=== PATIENT | male | born 2000 | race African-American/Black ===

== ENCOUNTER 2020-04-27 17:40 | Emergency (ER) | payer SELFPAY ==
[~2020-04-27] VITALS: Ht 185.5 cm; Wt 77.1 kg
[2020-04-27 17:44] VITALS: BP 125/74
[2020-04-27] MEDS ORDERED: IBUP-1780 PO (18:05)
[2020-04-27] MEDS ORDERED: GUAI-365 PO (18:05)
--- NOTE | 2020-04-27 18:06 | ED Respiratory ---
General Chief Complaint: Chest Pain Stated Complaint: CHEST PAIN,SOA,HEADACHE Nursing Triage Note: Patient reports shortness of breath, nasal congestion and headache for 2 weeks, and chest pain for 3 days. He denies any cough or fever. He denies any recent sick contacts. He reports he normally uses an inhaler, but left his inhaler at home when he flew to [place] for school two weeks ago. Source: patient Exam Limitations: no limitations History of Present Illness Date Seen by Provider: Apr 27, 2020 Time Seen by Provider: 17:55 Initial Comments 19-year-old male presents with 2 weeks of intermittent nasal congestion, and occasional shortness of air when he is outdoors in the cold weather. 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 He gets occasional headaches during the day which are located on the front of his head. Denies history of asthma, fever chills, nausea vomiting. Appetite is good and activities are unlimited. No significant past medical history, denies history of asthma, although he has used an inhaler in the past. Allergies and Home Medications Allergies Coded Allergies: No Known Drug Allergies (Unverified , 04/27/20) Patient Home Medication List Home Medication List Reviewed: Yes Review of Systems Review of Systems Constitutional: No chills, No diaphoresis, No dizziness, No fever, No malaise, No weakness EENTM: see HPI, nose congestion; No hoarseness, No mouth pain, No mouth swelling, No epistaxis, No nose pain, No throat pain, No throat swelling Respiratory: No cough, No dyspnea on exertion Cardiovascular: chest pain (intermittent sharp pains iin chest. none currently); No edema, No palpitations, No syncope Gastrointestinal: No abdominal pain, No loss of appetite, No nausea, No vom iting Musculoskeletal: No back pain, No joint pain Skin: No change in color, No rash Psychiatric/Neurological: Headache (intermittent- frontal); Denies Numbness, Denies Paresthesia, Denies Seizure, Denies Weakness Past Qxazurq-Nizzvr-Xvernt Hx Past Med/Social Hx: Reviewed Nursing Past Med/Soc Hx Patient Social History Recent Infectious Disease Expo: No Physical Exam Vital Signs - First Documented 04/27/20 17:44 Temp 36.8 Pulse 64 Resp 22 B/P (MAP) 125/74 (91) Pulse Ox 98 O2 Delivery Room Air Capillary Refill : Less Than 3 Seconds Height: '" Weight: lbs. oz. kg; 22.00 BMI Method: General Appearance: WD/WN, no apparent distress Eyes: Bilateral Eye Normal Inspection, Bilateral Eye PERRL, Bilateral Eye EOMI HEENT: PERRL/EOMI, normal ENT inspection, TMs normal, pharynx normal Neck: non-tender, supple; No lymphadenopathy (R), No lymphadenopathy (L) Respiratory: chest non-tender, lungs clear, normal breath sounds, no respiratory distress, no accessory muscle use Cardiovascular: regular rate, rhythm, no edema, no JVD Gastrointestinal: non tender, soft Neurologic/Psychiatric: no motor/sensory deficits, alert, normal mood/affect, oriented x 3 Skin: normal color, warm/dry Progress/Results/Core Measures Suspected Sepsis Recent Fever Within 48 Hours: No Infection Criteria Present: None New/Unexplained Altered Menta: No Sepsis Screen: No Definite Risk SIRS Temperature: Pulse: 64 Respiratory Rate: 22 Blood Pressure 125 /74 Mean: 91 Results/Orders My Orders Orders - SATYA BOO DO Chest 1 View Ap/Pa Only (04/27/20 18:00) Vital Signs/I&O 04/27/20 17:44 Temp 36.8 Pulse 64 Resp 22 B/P (MAP) 125/74 (91) Pulse Ox 98 O2 Delivery Room Air Capillary Refill : Less Than 3 Seconds Blood Pressure Mean: 91 Departure Impression Primary Impression: URI (upper respiratory infection) Qualified Codes: J06.9 - Acute upper respiratory infection, unspecified Disposition: 01 HOME, SELF-CARE Condition: Stable Departure-Patient Inst. Decision time for Depature: 18:04 Referrals: [facility] NO,LOCAL PHYSICIAN (PCP) Primary Care Physician Patient Instructions: Headache, Adult (DC), Upper Respiratory Infection ED Add. Discharge Instructions: Follow up at [facility] in 1 week if not improving, sooner if worse. All discharge instructions reviewed with patient and/or family. Voiced understanding. Scripts Guaifenesin/Pseudoephedrne HCl (Mucinex D ER 1,200-120 mg Tab) 1 Each Tab.er.12h 1 EACH PO q 12hr for sinus headache, #10 TAB Prov: MICHELLSTSATYA CAR DO 04/27/20 Ibuprofen (Ibuprofen) 800 Mg Tablet 800 MG PO Q8H PRN for PAIN, #30 TAB 0 Refills Prov: SATYA BOO DO 04/27/20 SATYA BOO DO Apr 27, 2020 18:06
--- NOTE | 2020-04-27 18:22 | Diagnostic Imaging Report ---
Clinical indication: Patient with shortness of breath, nasal congestion and headache x2 weeks. Patient has chest pain x3 days and history of asthma. Exam: Portable chest x-ray upright view. Comparisons: None. Findings: Lungs/pleura: Lungs are clear. There is no pneumothorax. There is no pleural effusion. Mediastinum: Unremarkable. Pulmonary vasculature: Unremarkable. Heart: Unremarkable. Bones/extrathoracic soft tissue: Unremarkable. Impression: There is no radiographic evidence of acute cardiopulmonary process. Dictated by: Dictated on workstation # [id number]
== END 2020-04-27 18:30 | disposition home or self-care (01) ==
LOC: ER FS 17:42
DX: J06.9 Acute upper respiratory infection, unspecified (principal)
CPT/HCPCS: 71045

== ENCOUNTER 2020-06-07 09:20 | Emergency (ER) | payer SELFPAY ==
[~2020-06-07] VITALS: Ht 185 cm; Wt 78.0 kg
[~2020-06-07 09:20] MED LIST: GUAI-365 PO; IBUP-1780 PO
[2020-06-07 09:25] VITALS: BP 115/63
[2020-06-07] MEDS ORDERED: FAMOTIDINE 20 MG (PEPCID) TABLET PO STA (09:29)
[2020-06-07] MEDS ORDERED: LIDOCAINE 2% VISCOUS 15 ML UDC PO ONE (09:30)
[2020-06-07] MEDS ORDERED: ANTACID SUSP 30 ML UDC (MYLANTA) PO ONE (09:30)
--- NOTE | 2020-06-07 09:34 | ED GI ---
General Chief Complaint: Abdominal/GI Problems Stated Complaint: INDIGESTION Source of Information: Patient Exam Limitations: No Limitations History of Present Illness Date Seen by Provider: Jun 07, 2020 Time Seen by Provider: 09:22 Initial Comments Patient presents ER by private conveyance from home with chief complaint that for the past 3 days has had intermittent feeling of a bubble in the center of his chest mid line, substernal like he needs to belch but he says he cannot get anything to come out. It is a dull pressure and no pain. Is not having any shortness of air fever chills cough, nausea, vomiting, diarrhea, constipation. He has been able to eat and drink normally. He has never had this before. He did not try any medicines, antacids etc. for it. No history of abdominal surgeries or medical problems. He plays football and denies any recent trauma prior to the symptoms starting. Allergies and Home Medications Allergies Coded Allergies: No Known Drug Allergies (Unverified , 04/27/20) Home Medications Famotidine 20 Mg Tablet, 20 MG PO BID Prescribed by: GRAHAM BEST on 06/07/20 1002 Guaifenesin/Pseudoephedrne HCl 1 Each Tab.er.12h, 1 EACH PO q 12hr Prescribed by: SATYA BOO on 04/27/20 180 Ibuprofen 800 Mg Tablet, 800 MG PO Q8H PRN for PAIN Prescribed by: SATYA BOO on 04/27/20 180 Patient Home Medication List Home Medication List Reviewed: Yes Review of Systems Review of Systems Constitutional: No chills, No diaphoresis EENTM: No Blurred Vision, No Double Vision Respiratory: Denies Cough, Denies Shortness of Air Cardiovascular: See HPI; Denies Chest Pain, Denies Lightheadedness Gastrointestinal: See HPI; Denies Abdominal Pain, Denies Constipated, Denies Diarrhea, Denies Nausea Genitourinary: Denies Burning, Denies Discharge Musculoskeletal: No back pain, No joint pain All Other Systems Reviewed Negative Unless Noted: Yes Past Kynipru-Kzxela-Mrsivn Hx Patient Social History Alcohol Use: Denies Use Smoking Status: Never a Smoker 2nd Hand Smoke Exposure: No Recent Hopitalizations: No Seasonal Allergies Seasonal Allergies: No Past Medical History Surgeries: No Respiratory: Yes Asthma Cardiac: No Neurological: No Genitourinary: No Gastrointestinal: No Musculoskeletal: No Endocrine: No HEENT: No Cancer: No Psychosocial: No Integumentary: No Physical Exam Vital Signs Vital Signs - First Documented 06/07/20 09:25 Temp 36.0 Pulse 79 Resp 18 B/P (MAP) 115/63 (80) Pulse Ox 96 O2 Delivery Room Air Capillary Refill : Height/Weight/BMI Height: '" Weight: lbs. oz. kg; 22.00 BMI Method: General Appearance: WD/WN, no apparent distress HEENT: PERRL/EOMI, pharynx normal Neck: full range of motion, normal inspection Respiratory: lungs clear, normal breath sounds, no respiratory distress, no accessory muscle use Cardiovascular: normal peripheral pulses, regular rate, rhythm Gastrointestinal: normal bowel sounds, non tender, soft, no organomegaly Back: normal inspection, no vertebral tenderness Neurologic/Psychiatric: alert, normal mood/affect, oriented x 3 Skin: normal color, warm/dry Progress/Results/Core Measures Results/Orders My Orders Orders - GRAHAM BEST Chest Pa/Lat (2 View) (06/07/20 09:29) Lidocaine 2% Viscous 15 Ml (Xylocaine Vi (06/07/20 09:30) Famotidine Tablet (Pepcid Tablet) (06/07/20 09:29) Antacid Suspension (Mylanta Suspension (06/07/20 09:30) Ekg Tracing (06/07/20 09:34) Medications Given in ED Current Medications Medications Dose Ordered Sig/Uzma Route Start Time Stop Time Status Last Admin Dose Admin Al Hydrox/Mg Hydrox/Simethicone 30 ml ONCE ONCE PO 06/07/20 09:30 06/07/20 09:31 DC 06/07/20 09:36 30 ML Lidocaine HCl 15 ml ONCE ONCE PO 06/07/20 09:30 06/07/20 09:31 DC 06/07/20 09:36 15 ML Vital Signs/I&O 06/07/20 09:25 Temp 36.0 Pulse 79 Resp 18 B/P (MAP) 115/63 (80) Pulse Ox 96 O2 Delivery Room Air Progress Progress Note #1: Time: 09:32 Progress Note Well-appearing athletic individual with intermittent pressure discomfort gas bubble sensation in the distribution of his mediastinum. This could be related to gas, esophagitis, gastroenteritis however we will get a 2 view chest x-ray to entertain the possibility of a spontaneous pneumothorax. He does not give any history that he has been having a lot of vomiting to suggest a Borhaaves type syndrome. A GI cocktail has been ordered in addition to Pepcid. Progress Note #2: Time: 09:57 Progress Note The patient went from symptomatic to asymptomatic after the GI cocktail. No evidence of a spontaneous pneumothorax on chest x-ray. We discussed doing some Pepcid for couple weeks as well as antacids for symptoms and will give him follow-up with general surgery if his symptoms persist for more than 2 to 4 weeks to consider endoscopy or further management. Initial ECG Impression Date: Jun 07, 2020 Initial ECG Impression Time: 09:36 Initial ECG Rate: 65 Initial ECG Rhythm: Normal Sinus Initial ECG Intervals: Normal Initial ECG Impression: Normal, Nonspecific Changes Initial ECG Comparisson: No Previous ECG Available Comment Normal sinus rhythm with baires ST elevation 1/2-1 box and several disparate leads including inferior leads, lateral leads, anterior leads likely related to age versus pericarditis. Diagnostic Imaging Diagonstic Imaging: Xray Plain Films/CT/US/NM/MRI: chest (2v) Comments No acute cardiopulmonary process. No wide mediastinum or cardiomegaly. No evidence of pneumothorax. No acute osseous abnormalities. Reviewed: Reviewed by Me Departure Impression Primary Impression: GERD (gastroesophageal reflux disease) Qualified Codes: K21.00 - Gastro-esophageal reflux disease with esophagitis, without bleeding Disposition: 01 HOME, SELF-CARE Condition: Stable Departure-Patient Inst. Decision time for Depature: 09:59 Referrals: LÓPEZ DEJESUS DO NO,LOCAL PHYSICIAN (PCP) Primary Care Physician Patient Instructions: Acid Reflux and Gastroesophageal Reflux Disease in Adults Add. Discharge Instructions: You appear to be having some reflux in your esophagus/food tube. For the next couple weeks let us use Pepcid 20 mg twice a day to reduce your stomach acid and see if that does not improve your symptoms. If you get repeat symptoms of gas, pressure or discomfort then you may try Tums, Rolaids, Maalox, Mylanta etc. If this does not help you might try a medicine with simethicone in it such as Gas-X to see if this relieves some of the discomfort. If your symptoms persist for more than 2 to 4 weeks then I would encourage you to follow-up with either your primary care doctor or you may follow-up with Dr. Dejesus, general surgery in [place] for further management and if necessary he can discuss potentially doing an EGD. EGD entails putting a camera down your stomach using a fiberoptic scope looking for ulcers or other sources of your persistent discomfort. Return to the nearest ER if you are having severe intractable pain nausea etc. All discharge instructions reviewed with patient and/or family. Voiced understanding. Scripts Famotidine (Pepcid) 20 Mg Tablet 20 MG PO BID for 14 Days, #30 TAB 0 Refills Prov: GRAHAM BEST 06/07/20 Work/School Note: School/Childcare Release Date Seen in the Emergency Department: Jun 07, 2020 Time Dismissed from Emergency Department: 10:02 Return to School: Jun 07, 2020 Restrictions: No Restrictions Copy Copies To 1: LÓPEZ DEJESUS TITUS J Jun 07, 2020 09:34
[2020-06-07] MEDS ORDERED: FAMO-119 PO (10:02)
--- NOTE | 2020-06-07 10:05 | Diagnostic Imaging Report ---
INDICATION: Chest pressure. EXAMINATION: PA and lateral chest. FINDINGS: The heart size and pulmonary vascularity are normal. The lungs are clear. There are no effusions or pneumothoraces. IMPRESSION: Negative chest. Dictated by: Dictated on workstation # [id number]
== END 2020-06-07 10:04 | disposition home or self-care (01) ==
LOC: EDUNIT# 09:20 → ER FS 09:22
DX: K21.00 Gastro-esophageal reflux disease with esophagitis, without bleeding (principal); J45.909 Unspecified asthma, uncomplicated
CPT/HCPCS: 71046; 93005

== ENCOUNTER 2020-06-16 13:07 | Emergency (ER) | payer SELFPAY ==
[~2020-06-16] VITALS: Ht 185.4 cm; Wt 80.3 kg
[~2020-06-16 13:07] MED LIST changes: +FAMO-119 PO
--- NOTE | 2020-06-16 13:57 | ED General ---
General Chief Complaint: General Problems/Pain Stated Complaint: CHEST TIGHTNESS Nursing Triage Note: Patient presents to ED reporting chest tightness with activity. Pt reports he has had SOA in past and rec'd an inhaler from . Pt had COVID in September. Nursing Sepsis Screen: No Definite Risk Source of Information: Patient, Old Records History of Present Illness Date Seen by Provider: Jun 16, 2020 Time Seen by Provider: 13:10 Initial Comments 19-year-old male presenting with recurrent chest tightness and shortness of breath especially with exertion. He states that he is originally from [place] and is appear for [employer]. He is not used to being in the cold and was sick when it was in the negative degree range in May. He has had intermittent shortness of breath and chest tightness over the last 6 weeks. He was seen at the end of May and was having a sensation of a bubble in his chest. He states that since taking the famotidine that he was prescribed he has had some improvement in that. He continues to get that when he lays down and has a dry sensation in the back of his throat at times. He denies any nausea or vomiting. He has had no fever or chills. He denies any wheezing. He states that when he gets short of breath with activity if he sits and rests for a minute then it improves. He reports that his burping and reflux symptoms have improved since taking the famotidine. He has a history of a heart murmur and some shortness of breath that was treated with an inhaler about 2 years ago in [place]. He states that he never saw a lockstitch tunnel elastic operator for lung specialist. He was diagnosed with Covid in September 2019. Allergies and Home Medications Allergies Coded Allergies: No Known Drug Allergies (Unverified , 04/27/20) Home Medications Colchicine 0.6 Mg Capsule, 0.6 MG PO BID Prescribed by: ADONIS ROMERO on 06/16/20 1459 Famotidine 20 Mg Tablet, 20 MG PO BID Prescribed by: GRAHAM BEST on 06/07/20 1002 Ibuprofen 800 Mg Tablet, 800 MG PO Q8H PRN for PAIN 800 mg by mouth 3 times a day for 2 weeks, then 800 mg 2 times a day for 1 week, then 400 mg (1/2 tablet) 2 times a day for 6 days. Prescribed by: ADONIS ROMERO on 4/7/21 1456 Omeprazole 20 Mg Capsule.dr, 20 MG PO BID Prescribed by: ADONIS ROMERO on 06/16/206 Patient Home Medication List Home Medication List Reviewed: Yes Review of Systems Review of Systems Constitutional: No chills, No dizziness, No fever, No malaise EENTM: other (dry sensation in back of throat); No epistaxis, No nose congestion Respiratory: dyspnea on exertion (improves with rest) Cardiovascular: chest pain (tightness with exertion, improves with rest. Bubble sensation in chest with laying down that has improved with taking the famotidine) Gastrointestinal: No abdominal pain, No nausea, No vomiting Genitourinary: no symptoms reported Musculoskeletal: no symptoms reported Skin: no symptoms reported Psychiatric/Neurological: No Symptoms Reported Hematologic/Lymphatic: No Symptoms Reported Past Xfrnouv-Nefmui-Dsxesc Hx Past Med/Social Hx: Reviewed Nursing Past Med/Soc Hx Patient Social History Alcohol Use: Denies Use Smoking Status: Never a Smoker 2nd Hand Smoke Exposure: No Recent Infectious Disease Expo: No Recent Hopitalizations: No Seasonal Allergies Seasonal Allergies: No Past Medical History Surgeries: No Respiratory: Yes Asthma Cardiac: No Neurological: No Genitourinary: No Gastrointestinal: No Musculoskeletal: No Endocrine: No HEENT: No Cancer: No Psychosocial: No Integumentary: No Blood Disorders: No Physical Exam Vital Signs Vital Signs - First Documented 06/16/20 13:10 Temp 36.8 Pulse 65 Resp 12 B/P (MAP) 130/62 (84) Pulse Ox 98 O2 Delivery Room Air Capillary Refill : Less Than 3 Seconds Height, Weight, BMI Height: '" Weight: lbs. oz. kg; 23.00 BMI Method: General Appearance: No Apparent Distress, WD/WN HEENT: PERRL/EOMI, Normal ENT Inspection, Pharynx Normal, Moist Mucous Membranes Neck: Full Range of Motion, Normal Inspection, Non Tender, Supple Respiratory: Chest Non Tender, Lungs Clear, Normal Breath Sounds, No Accessory Muscle Use, No Respiratory Distress Cardiovascular: Regular Rate, Rhythm, Normal Peripheral Pulses Gastrointestinal: Normal Bowel Sounds, No Pulsatile Mass, Non Tender, Soft Rectal: Deferred Extremity: Normal Capillary Refill, No Pedal Edema Neurologic/Psychiatric: Alert, Oriented x3 Skin: Normal Color, Warm/Dry Progress/Results/Core Measures Suspected Sepsis Recent Fever Within 48 Hours: No Infection Criteria Present: None New/Unexplained Altered Menta: No Sepsis Screen: No Definite Risk SIRS Temperature: Pulse: 65 Respiratory Rate: 12 Laboratory Tests 06/16/20 13:54: White Blood Count 5.4 Blood Pressure 130 /62 Mean: 84 Laboratory Tests 06/16/20 13:54: Creatinine 1.06, Platelet Count 248, Total Bilirubin 0.5 Results/Orders Lab Results Laboratory Tests Test 06/16/20 13:54 Range/Units White Blood Count 5.4 4.3-11.0 10^3/uL Red Blood Count 4.94 4.35-5.85 10^6/uL Hemoglobin 13.7 13.3-17.7 G/DL Hematocrit 41 40-54 % Mean Corpuscular Volume 83 80-99 FL Mean Corpuscular Hemoglobin 28 25-34 PG Mean Corpuscular Hemoglobin Concent 33 32-36 G/DL Red Cell Distribution Width 13.6 10.0-14.5 % Platelet Count 248 130-400 10^3/uL Mean Platelet Volume 9.6 7.4-10.4 FL Immature Granulocyte % (Auto) 0 % Neutrophils (%) (Auto) 56 42-75 % Lymphocytes (%) (Auto) 37 12-44 % Monocytes (%) (Auto) 6 0-12 % Eosinophils (%) (Auto) 0 0-10 % Basophils (%) (Auto) 1 0-10 % Neutrophils # (Auto) 3.0 1.8-7.8 X 10^3 Lymphocytes # (Auto) 2.0 1.0-4.0 X 10^3 Monocytes # (Auto) 0.3 0.0-1.0 X 10^3 Eosinophils # (Auto) 0.0 0.0-0.3 10^3/uL Basophils # (Auto) 0.0 0.0-0.1 10^3/uL Immature Granulocyte # (Auto) 0.0 0.0-0.1 10^3/uL Sodium Level 138 135-145 MMOL/L Potassium Level 4.3 3.6-5.0 MMOL/L Chloride Level 101 98-107 MMOL/L Carbon Dioxide Level 31 21-32 MMOL/L Anion Gap 6 5-14 MMOL/L Blood Urea Nitrogen 9 7-18 MG/DL Creatinine 1.06 0.60-1.30 MG/DL Estimat Glomerular Filtration Rate > 60 BUN/Creatinine Ratio 8 Glucose Level 109 H 70-105 MG/DL Calcium Level 9.7 8.5-10.1 MG/DL Corrected Calcium 9.4 8.5-10.1 MG/DL Total Bilirubin 0.5 0.1-1.0 MG/DL Aspartate Amino Transf (AST/SGOT) 48 H 5-34 U/L Alanine Aminotransferase (ALT/SGPT) 20 0-55 U/L Alkaline Phosphatase 80 40-136 U/L Troponin I < 0.30 <0.30 NG/ML C-Reactive Protein 0.03 <0.50 MG/DL Pro-B-Type Natriuretic Peptide 16.9 <75.0 PG/ML Total Protein 7.4 6.4-8.2 GM/DL Albumin 4.4 3.2-4.5 GM/DL My Orders Orders - ADONIS ROMERO MD Ekg Tracing (06/16/20 13:20) Cbc With Automated Diff (06/16/20 13:40) Comprehensive Metabolic Panel (06/16/20 13:40) Crp Fs (06/16/20 13:40) Troponin I Fs (06/16/20 13:40) Probnp Fs (06/16/20 13:40) Vital Signs/I&O 06/16/20 06/16/20 13:10 15:00 Temp 36.8 36.8 Pulse 65 62 Resp 12 23 B/P (MAP) 130/62 (84) 108/56 (84) Pulse Ox 98 97 O2 Delivery Room Air Room Air Capillary Refill : Less Than 3 Seconds Blood Pressure Mean: 84 Progress Note #1: Progress Note With his shortness of breath with exertion and no acute findings on previous x- rays but having findings for pericarditis on his previous EKG will repeat an el ectrocardiogram today and check basic labs along with CRP and cardiac enzymes. Will defer repeating imaging since he just had that done 06/07. He may benefit from steroid or NSAID treatment for pericarditis and follow-up with cardiology or pulmonary about the pericarditis findings on his ECG. Progress Note #2: Progress Note labs do not show elevation of CRP or cardiac enzymes. no acute significant abnormality of CBC or Chemistry. With continued findings of pericarditis on ECG will try treating for this. Based off recommendations from UpToDate online medical reference treatment would include colchicine, NSAIDs, PPI for stomach protection. Updated pt and discharge on Ibuprofen to be tapered over a month, Colchicine for a month, Omeprazole for a month. Check with clinic and establish care for follow up so if he is not improving then he can be seen with Cardiology or have further testing/evaluation beyond what I have here in the ED ECG Initial ECG Impression Date: Jun 16, 2020 Initial ECG Impression Time: 13:36 Initial ECG Rate: 60 Initial ECG Rhythm: Normal Sinus Initial ECG Comparisson: Unchanged Comment Normal sinus rhythm with heart rate of 60 bpm. OR interval 157 ms. QT interval 419 ms with a QTc interval of 419 ms. He has diffuse ST elevation consistent with acute pericarditis with ST segment greater than 0.1 mV in the anterior lateral and inferior leads. This appears similar to his tracing from June 07, 2020 Departure Impression Primary Impression: Acute pericarditis Qualified Codes: I30.9 - Acute pericarditis, unspecified Disposition: 01 HOME, SELF-CARE Condition: Stable Departure-Patient Inst. Decision time for Depature: 14:46 Referrals: KAUSHIK ANN MD NO,LOCAL PHYSICIAN (PCP) Primary Care Physician [facility] [place] Patient Instructions: Pericarditis, Adult (DC) Add. Discharge Instructions: Take the Ibuprofen for inflammation to the lining around your heart (Pericar ditis). Continue on the Famotidine as the Ibuprofen can cause more heartburn and reflux symptoms. Make sure to take the Ibuprofen with food to help limit this. Take Omeprazole to help prevent ulcers and stomach irritation from the Ibuprofen Follow up with [facility] by calling [phone] and they may have you also see Cardiology or Pulmonary for other testing if you do not resolve and improve with the steroid. All discharge instructions reviewed with patient and/or family. Voiced understanding. Scripts Colchicine (Colchicine) 0.6 Mg Capsule 0.6 MG PO BID for Pericarditis for 30 Days, #60 CAP 0 Refills Prov: ADONIS ROMERO MD 06/16/20 Omeprazole (Omeprazole) 20 Mg Capsule.dr 20 MG PO BID for 30 Days, #60 CAP 0 Refills Prov: ADONIS ROMERO MD 06/16/20 Ibuprofen (Ibuprofen) 800 Mg Tablet 800 MG PO Q8H PRN for PAIN for 27 Days, #62 TAB 0 Refills 800 mg by mouth 3 times a day for 2 weeks, then 800 mg 2 times a day for 1 week, then 400 mg (1/2 tablet) 2 times a day for 6 days. Prov: ADONIS ROMERO MD 06/16/20 ADONIS ROMERO MD Jun 16, 2020 13:57
[2020-06-16 14:14] LABS: HEMATOCRIT 41 % (40-54); HEMOGLOBIN 13.7 G/DL (13.3-17.7); MEAN CORPUSCULAR HEMOGLOBIN 28 PG (25-34); MEAN CORPUSCULAR HGB CONC 33 G/DL (32-36); MEAN CORPUSCULAR VOLUME 83 FL (80-99); WHITE BLOOD COUNT 5.4 10^3/uL (4.3-11.0)
[2020-06-16 14:15] LABS: BASOPHILS % (AUTO) 1 % (0-10); EOSINOPHILS % (AUTO) 0 % (0-10); LYMPHOCYTES % (AUTO) 37 % (12-44); MEAN PLATELET VOLUME 9.6 FL (7.4-10.4); MONOCYTES # (AUTO) 0.3 X 10^3 (0.0-1.0); MONOCYTES % (AUTO) 6 % (0-12); NEUTROPHILS % (AUTO) 56 % (42-75); PLATELET COUNT 248 10^3/uL (130-400)
[2020-06-16 14:29] LABS: CARBON DIOXIDE 31 MMOL/L (21-32); CHLORIDE 101 MMOL/L (98-107); POTASSIUM 4.3 MMOL/L (3.6-5.0); SODIUM 138 MMOL/L (135-145)
[2020-06-16 14:30] LABS: ALANINE AMINOTRANSFERASE 20 U/L (0-55); ALBUMIN 4.4 GM/DL (3.2-4.5); ALKALINE PHOSPHATASE 80 U/L (40-136); BILIRUBIN,TOTAL 0.5 MG/DL (0.1-1.0); BUN/CREATININE RATIO 8; CALCIUM 9.7 MG/DL (8.5-10.1); CREATININE SERUM 1.06 MG/DL (0.60-1.30); GFR ESTIMATED > 60; GLUCOSE 109 MG/DL (70-105); TOTAL PROTEIN 7.4 GM/DL (6.4-8.2)
[2020-06-16] MEDS ORDERED: OMEP20CA18 PO (14:56)
[2020-06-16] MEDS ORDERED: IBUP-1780 PO (14:56)
[2020-06-16] MEDS ORDERED: COLC0.6C3 PO (14:59)
[2020-06-16 15:00] VITALS: BP 108/56
== END 2020-06-16 15:00 | disposition home or self-care (01) ==
LOC: EDUNIT# 13:07 → ER FS 13:09
DX: I30.9 Acute pericarditis, unspecified (principal)
CPT/HCPCS: 36415; 80053; 83880; 84484; 85025; 86141; 93005

== ENCOUNTER 2020-06-17 01:48 | Emergency (ER) | payer SELFPAY ==
[~2020-06-17] VITALS: Ht 185.4 cm; Wt 74.3 kg
[~2020-06-17 01:48] MED LIST changes: +COLC0.6C3 PO; +OMEP20CA18 PO
[2020-06-17 02:07] VITALS: BP 113/56
[2020-06-17 02:08] VITALS: BP 110/62
--- NOTE | 2020-06-17 02:09 | ED General ---
General Chief Complaint: Lower Extremity Stated Complaint: LEG PAIN Nursing Triage Note: Pt in [facility] EMS for leg feeling weird, seen in ER yesterday. Nursing Sepsis Screen: No Definite Risk Source of Information: Patient, EMS, Old Records History of Present Illness Date Seen by Provider: Jun 17, 2020 Time Seen by Provider: 01:48 Initial Comments 19 yo male presents to the ED by EMS with complaint of waking up around 1 am with heart racing and legs feeling weak. He panicked and was anxious because he had not felt that before and thought it might be due to his new medicines that were started from ED visit with me on 06/16 when he was diagnosed with pericarditis. He was concerned about taking the medicines together and thought that caused him problems. he was still anxious when EMS arrived but they talked to him for a few minutes and his heart rate and vital signs were normal when they checked. He had no nausea/vomiting/diarrhea, fever, chills, cough, headache. He was having some tightness in his chest and felt like his heart was racing but it settled after speaking with EMS. He does have an appointment to see the clinic Sunday of next week for follow up and to establish care. Allergies and Home Medications Allergies Coded Allergies: No Known Drug Allergies (Unverified , 04/27/20) Home Medications Colchicine 0.6 Mg Capsule, 0.6 MG PO BID Prescribed by: ADONIS ROMERO on 06/16/20 145 Famotidine 20 Mg Tablet, 20 MG PO BID Prescribed by: GRAHAM BEST on 06/07/20 1002 Ibuprofen 800 Mg Tablet, 800 MG PO Q8H PRN for PAIN 800 mg by mouth 3 times a day for 2 weeks, then 800 mg 2 times a day for 1 week, then 400 mg (1/2 tablet) 2 times a day for 6 days. Prescribed by: ADONIS ROMERO on 06/16/20 145 Omeprazole 20 Mg Capsule.dr, 20 MG PO BID Prescribed by: ADONIS ROMERO on 06/16/20 145 Patient Home Medication List Home Medication List Reviewed: Yes Review of Systems Review of Systems Constitutional: see HPI EENTM: no symptoms reported Respiratory: see HPI Cardiovascular: see HPI Gastrointestinal: see HPI Genitourinary: no symptoms reported Musculoskeletal: see HPI Skin: no symptoms reported Psychiatric/Neurological: Anxiety Hematologic/Lymphatic: No Symptoms Reported Past Vevdvsx-Edictv-Xnddxl Hx Past Med/Social Hx: Reviewed Nursing Past Med/Soc Hx Patient Social History 2nd Hand Smoke Exposure: No Recent Infectious Disease Expo: No Recent Hopitalizations: No Seasonal Allergies Seasonal Allergies: No Past Medical History Surgeries: No Respiratory: Yes Asthma Cardiac: No Neurological: No Genitourinary: No Gastrointestinal: No Musculoskeletal: No Endocrine: No HEENT: No Cancer: No Psychosocial: No Integumentary: No Blood Disorders: No Physical Exam Vital Signs Vital Signs - First Documented 06/17/20 01:48 Temp 37.2 Pulse 60 Resp 14 B/P (MAP) 120/73 (89) Pulse Ox 99 O2 Delivery Room Air Capillary Refill : Less Than 3 Seconds Height, Weight, BMI Height: '" Weight: lbs. oz. kg; 21.00 BMI Method: General Appearance: No Apparent Distress, WD/WN HEENT: PERRL/EOMI, Pharynx Normal Neck: Full Range of Motion, Normal Inspection, Non Tender, Supple Respiratory: Chest Non Tender, Lungs Clear, Normal Breath Sounds, No Accessory Muscle Use, No Respiratory Distress Cardiovascular: Regular Rate, Rhythm, Normal Peripheral Pulses Gastrointestinal: Normal Bowel Sounds, No Pulsatile Mass, Non Tender, Soft Rectal: Deferred Extremity: Normal Capillary Refill, No Pedal Edema Neurologic/Psychiatric: Alert, Oriented x3, hot blast worker II-XII Norm as Tested Skin: Normal Color, Warm/Dry Progress/Results/Core Measures Suspected Sepsis Recent Fever Within 48 Hours: No Infection Criteria Present: None New/Unexplained Altered Menta: No Sepsis Screen: No Definite Risk SIRS Temperature: Pulse: 60 Respiratory Rate: 14 Blood Pressure 120 /73 Mean: 89 Results/Orders Vital Signs/I&O 06/17/20 01:48 Temp 37.2 Pulse 60 Resp 14 B/P (MAP) 120/73 (89) Pulse Ox 99 O2 Delivery Room Air Capillary Refill : Less Than 3 Seconds Blood Pressure Mean: 89 Progress Note : Progress Note reviewed side effects of the medicines and tachycardia was not listed but colchicine can cause some muscle spasms. D/w pt that he may have just woke up with a panic attack from reflux and taking the medicines and after our discussion about pericarditis during the ED visit on 06/16. Orthostatic vital signs are normal. Counseled that I could see about admitting him if he wanted to go see the Channel Development Director and have further testing done now. He felt that he m aybe just should not take the medicine all together. He will try to space the medicines out. Give a few more days to see if the medicine helps. Counseled that if he has more episodes of his heart racing to return or check with clinic as he may need a holter monitor or further evaluation for why his heart is racing. Departure Impression Primary Impression: Panic attack Additional Impression: Racing heart beat Disposition: HOME, SELF-CARE Condition: Improved Departure-Patient Inst. Decision time for Depature: 02:37 Referrals: KAUSHIK ANN MD NO,LOCAL PHYSICIAN (PCP) Primary Care Physician [facility] Patient Instructions: Anxiety, Adult ED, Tachycardia (DC) Add. Discharge Instructions: Stay well hydrated and make sure you are drinking plenty of water and electrolyte drinks. Avoid caffeine and energy drinks. Continue on the medicines as prescribed on SundayJune 16. Take the Omeprazole 30 minutes to an hour prior to eating. Take the Ibuprofen with food and then you could take the Colchicine 30 minutes to an hour after you have eaten to space out your medicines. If you have more episodes of your heart racing then check back with clinic or return so you can get set up with Cardiology or may need to wear a special monitor to watch your heart rate to see why your heart is racing at times. All discharge instructions reviewed with patient and/or family. Voiced understanding. Work/School Note: Local Medical Staff Listing, [employer] Information, Work Release Form Date Seen in the Emergency Department: Jun 17, 2020 Return to Work: Jun 18, 2020 Other Restrictions Listed Below: No sports/practice today. Light activity only for next week. ADONIS ROMERO MD Jun 17, 2020 02:09
[2020-06-17 02:10] VITALS: BP 118/60
== END 2020-06-17 02:42 | disposition home or self-care (01) ==
LOC: EDUNIT# 01:48 → ER FS 01:49
DX: F41.0 Panic disorder [episodic paroxysmal anxiety] (principal)
CPT/HCPCS: 99283

== ENCOUNTER 2021-01-04 13:39 | Emergency (ER) | payer SELFPAY ==
[~2021-01-04] VITALS: Ht 185 cm; Wt 86.0 kg
--- OUTSIDE RECORDS SUMMARY | 2021-01-04 13:45 | XMS REPORT | Clinical Summary ---
Author Author [facility] Organization [facility] Address Unknown Phone Unavailable Care Team Providers Care Mock Up Maker Name Role Phone No Pcp, Na PCP Unavailable Source Comments Some departments are not documenting in the electronic medical record. If you d o not see the information that you expected, contact Release of Information in [facility] [place] Information Management department at [phone] for further assistan ce in locating additional records.[facility] Allergies Not on File Medications End Date Status Medication Sig Dispensed Refills Start Date Active famotidine (PEPCID) 20 mg Take 20 mg by 0 / tablet mouth twice 1 daily. Active colchicine 0.6 mg cap TAKE 1 0 06/17/19 2 CAPSULE BY 1 MOUTH TWICE DAILY FOR PERICARDITIS Active naproxen (NAPROSYN) 500 Take 500 mg 0 mg tablet by mouth 1 twice daily. Active omeprazole DR (PRILOSEC) Take 20 mg by 0 06/16 20 mg capsule mouth twice 1 daily. Active Problems Problem Noted Date Encounter for examination for participation in sport 10/05/2020 Dyspnea on exertion 10/05/2020 Social History Date Tobacco Use Types Packs/Day Years Used Never Assessed Sex Assigned at Date Recorded Not on file Last Filed Vital Signs Not on file Plan of Treatment Health Maintenance Due Date Last Done Comments HPV VACCINES (1 - Male 2009 2-dose series) HIV SCREENING 2013 DTAP/TDAP VACCINES (1 - 2016 Tdap) HEPATITIS C SCREENING 2016 PHYSICAL (COMPREHENSIVE) 2016 EXAM INFLUENZA VACCINE 10/10/2020 MENINGOCOCCAL VACCINE Aged Out No longer eligib le based on patient's age to (Doug POON) complete this topic Results Not on filefrom Last 3 Months Advance Directives Patient Financial Aid Administrator Explanation Type Date Recorded Advance Directive/DPOA
--- NOTE | 2021-01-04 13:47 | ED Integumentary General ---
General Chief Complaint: Skin/Wound Problems Stated Complaint: GENITAL RASH Source: family Exam Limitations: clinical condition History of Present Illness Date Seen by Provider: Jan 04, 2021 Time Seen by Provider: 13:47 Initial Comments Patient is a 20-year-old -Russian male presents with recurrent diffuse rash on his skin. Rash was first noted 2 weeks ago and reoccurred this morning but resolved 30 minutes prior to ED arrival. He describes it is pruritic in nature. He denies new foods, products or history of allergies. He does not have fever chills sore throat, body aches, shortness of breath, airway swelling or wheezing. No medications or therapies taken prior to ED arrival. 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 Timing/Duration: week, gone now Severity: mild Possible Cause: other Modifying Factors: improves with other Associated Symptoms: other Allergies and Home Medications Allergies Coded Allergies: No Known Drug Allergies (Unverified , 04/27/20) Patient Home Medication List Home Medication List Reviewed: Yes Colchicine (Colchicine) 0.6 Mg Capsule, 0.6 MG PO BID Prescribed by: ADONIS ROMERO on 06/16/20 1459 Famotidine (Pepcid) 20 Mg Tablet, 20 MG PO BID Prescribed by: GRAHAM BEST on 06/07/20 1002 Ibuprofen (Ibuprofen) 800 Mg Tablet, 800 MG PO Q8H PRN for PAIN Prescribed by: ADONIS ROMERO on 06/16/20 1456 Omeprazole (Omeprazole) 20 Mg Capsule.dr, 20 MG PO BID Prescribed by: ADONIS ROMERO on 06/16/20 1456 Review of Systems Review of Systems Constitutional: see HPI EENTM: see HPI Respiratory: see HPI Cardiovascular: see HPI Gastrointestinal: see HPI Genitourinary: see HPI Musculoskeletal: see HPI Skin: see HPI Psychiatric/Neurological: See HPI Endocrine: See HPI Hematologic/Lymphatic: See HPI Past Vdmcmpx-Wupuvz-Rxviev Hx Patient Social History Tobacco Use?: Yes Use of E-Cig and/or Vaping dev: No Substance use?: No Alcohol Use?: No Pt feels they are or have been: No Seasonal Allergies Seasonal Allergies: No Past Medical History Surgeries: No Respiratory: Yes Asthma Cardiac: No Neurological: No Genitourinary: No Gastrointestinal: No Musculoskeletal: No Endocrine: No HEENT: No Cancer: No Psychosocial: No Integumentary: No Blood Disorders: No Physical Exam Vital Signs Vital Signs - First Documented 01/04/21 13:49 Temp 36.1 Pulse 68 Resp 16 B/P (MAP) 113/71 (85) O2 Delivery Room Air Capillary Refill : General Appearance: WD/WN, no apparent distress HEENT: PERRL/EOMI, normal ENT inspection Neck: full range of motion, supple Cardiovascular: regular rate, rhythm Respiratory: chest non-tender, lungs clear Gastrointestinal: non tender, soft Extremities: non-tender Neurologic/Psychiatric: php consultant II-XII nml as tested, alert, oriented x 3 Skin: warm/dry Skin Problem Location: face Skin Problem Character: other (Normal for ethnicity, no rash induration swelling or petechiae appreciated) Lymphatic: no adenopathy Progress/Results/Core Measures Results/Orders Vital Signs/I&O 01/04/21 13:49 Temp 36.1 Pulse 68 Resp 16 B/P (MAP) 113/71 (85) O2 Delivery Room Air Departure Communication (Admissions) Recurrent rash resolved prior to ED arrival. Advised the patient is take pictures in future and follow-up with his PCP. The rash recurs he is to take Benadryl and if he develops airway swelling, shortness of breath or other concerning symptoms he should return to the emergency department immediately. He verbalizes understanding agreement discharge instructions prior to departure. Impression Primary Impression: Rash Disposition: 01 HOME, SELF-CARE Condition: Stable Departure-Patient Inst. Decision time for Depature: 14:17 Referrals: NO,LOCAL PHYSICIAN (PCP/Family) Primary Care Physician Patient Instructions: Skin Rash Add. Discharge Instructions: You wre evaluated in the emergency department for a skin rash. The cause of your rash has not been determined. Please avoid new medications, soaps detergents household products and take Benadryl as needed if rash returns. If you develop shortness of air, airway swelling, wheezing or other concerning symptoms, return to the emergency department. Otherwise follow-up with a local healthcare provider. All discharge instructions reviewed with patient and/or family. Voiced understanding. ASYA GRANADOS DO Jan 04, 2021 13:47
[2021-01-04 14:19] VITALS: BP 113/71
== END 2021-01-04 14:20 | disposition home or self-care (01) ==
LOC: EDUNIT# 13:39 → ER FS 13:41
DX: R21 Rash and other nonspecific skin eruption (principal); J45.909 Unspecified asthma, uncomplicated; Z72.0 Tobacco use
CPT/HCPCS: 99281

== ENCOUNTER 2021-01-10 19:52 | Emergency (ER) | payer SELFPAY ==
[~2021-01-10] VITALS: Ht 185 cm; Wt 83.0 kg
[2021-01-10] MEDS ORDERED: KETOROLAC 30 MG/ML VIAL IV ONE (20:30)
[2021-01-10] MEDS ORDERED: ACETAMINOPHEN 500 MG TAB (TYLENOL) PO ONE (20:30)
[2021-01-10 20:36] LABS: BASOPHILS % (AUTO) 1 % (0-10); EOSINOPHILS % (AUTO) 1 % (0-10); HEMATOCRIT 46 % (40-54); HEMOGLOBIN 14.9 g/dL (13.3-17.7); LYMPHOCYTES % (AUTO) 58 % (12-44); MEAN CORPUSCULAR HEMOGLOBIN 27 pg (25-34); MEAN CORPUSCULAR HGB CONC 33 g/dL (32-36); MEAN CORPUSCULAR VOLUME 84 fL (80-99); MEAN PLATELET VOLUME 9.5 fL (9.0-12.2); MONOCYTES % (AUTO) 8 % (0-12); NEUTROPHILS % (AUTO) 33 % (42-75); PLATELET COUNT 256 10^3/uL (130-400); WHITE BLOOD COUNT 3.3 10^3/uL (4.3-11.0)
[2021-01-10 20:37] LABS: LYMPHOCYTES # (AUTO) 1.9 X 10^3 (1.0-4.0); MONOCYTES # (AUTO) 0.3 X 10^3 (0.0-1.0); NEUTROPHILS # (AUTO) 1.1 X 10^3 (1.8-7.8)
--- NOTE | 2021-01-10 20:43 | Diagnostic Imaging Report ---
EXAMINATION: Chest 1 view HISTORY: Chest pain COMPARISON: 04/27/2020 FINDINGS: The lungs are clear without edema or pneumonia. No pleural effusion or pneumothorax. Heart size is normal. IMPRESSION: 1. Clear lungs. Dictated by: Dictated on workstation # [id number]
[2021-01-10 20:56] LABS: ALANINE AMINOTRANSFERASE 11 U/L (0-55); ALKALINE PHOSPHATASE 89 U/L (40-136); BILIRUBIN,TOTAL 0.3 MG/DL (0.1-1.0); BUN/CREATININE RATIO 9; CALCIUM 9.8 MG/DL (8.5-10.1); CARBON DIOXIDE 32 MMOL/L (21-32); CHLORIDE 101 MMOL/L (98-107); CREATININE SERUM 0.92 MG/DL (0.60-1.30); GFR ESTIMATED 125; GLUCOSE 70 MG/DL (70-105); MAGNESIUM 2.1 MG/DL (1.6-2.4); POTASSIUM 3.8 MMOL/L (3.6-5.0); SODIUM 140 MMOL/L (135-145); TOTAL PROTEIN 7.7 GM/DL (6.4-8.2)
[2021-01-10 20:57] LABS: ALBUMIN 4.6 GM/DL (3.2-4.5)
--- NOTE | 2021-01-10 20:59 | ED Chest Pain ---
General Chief Complaint: Cardiac/General Problems Stated Complaint: CP Source: patient Exam Limitations: no limitations History of Present Illness Date Seen by Provider: Jan 10, 2021 Time Seen by Provider: 20:00 Initial Comments 20-year-old male with past medical history of pericarditis coming in due to intermittent sharp chest pain on the left side of his chest with been ongoing since Sunday. Worse when he lays back, better when sitting up. Does not feel short of breath with it. Has not tried any medications for it. Says it feels the exact same as when he had pericarditis before which improved with steroids. Denies any recent illness, fever, shortness of breath, gain of weight, trauma, or any other concerns. Allergies and Home Medications Allergies Coded Allergies: No Known Drug Allergies (Unverified , 04/27/20) Patient Home Medication List Home Medication List Reviewed: Yes Colchicine (Colchicine) 0.6 Mg Capsule, 0.6 MG PO BID Prescribed by: ADONIS ROMERO on 06/16/20 1459 Famotidine (Pepcid) 20 Mg Tablet, 20 MG PO BID Prescribed by: GRAHAM BEST on 06/07/20 1002 Ibuprofen (Ibuprofen) 800 Mg Tablet, 800 MG PO Q8H PRN for PAIN Prescribed by: ADONIS ROMERO on 06/16/20 1456 Omeprazole (Omeprazole) 20 Mg Capsule.dr, 20 MG PO BID Prescribed by: ADONIS ROMERO on 06/16/20 1456 Review of Systems Review of Systems Constitutional: No chills, No fever EENTM: No Blurred Vision Respiratory: Denies Cough, Denies Shortness of Air Cardiovascular: Chest Pain Gastrointestinal: Denies Abdominal Pain, Denies Diarrhea, Denies Nausea Genitourinary: No Symptoms Reported Musculoskeletal: no symptoms reported Skin: no symptoms reported Psychiatric/Neurological: No Symptoms Reported Endocrine: No Symptoms Reported Hematologic/Lymphatic: No Symptoms Reported All Other Systems Reviewed Negative Unless Noted: Yes Past Dhxfnuv-Xgssoh-Dnxxor Hx Patient Social History Tobacco Use?: No Seasonal Allergies Seasonal Allergies: No Past Medical History Surgeries: No Respiratory: Yes Asthma Cardiac: No Neurological: No Genitourinary: No Gastrointestinal: No Musculoskeletal: No Endocrine: No HEENT: No Cancer: No Psychosocial: No Integumentary: No Blood Disorders: No Physical Exam Vital Signs Capillary Refill : Height, Weight, BMI Height: '" Weight: lbs. oz. kg; 25.00 BMI Method: General Appearance: No Apparent Distress, WD/WN HEENT: PERRL/EOMI, Normal ENT Inspection, Pharynx Normal Neck: Full Range of Motion, Normal Inspection, Non Tender, Supple Respiratory: Chest Non Tender, Lungs Clear, Normal Breath Sounds, No Accessory Muscle Use, No Respiratory Distress Cardiovascular: Regular Rate, Rhythm, No Edema, Normal Peripheral Pulses, Other (no rub) Gastrointestinal: Normal Bowel Sounds, Non Tender, Soft; No Distended, No Guarding Extremity: Normal Capillary Refill, Normal Inspection, Normal Range of Motion, Non Tender, No Calf Tenderness, No Pedal Edema Neurologic/Psychiatric: Alert, No Motor/Sensory Deficits, Normal Mood/Affect Skin: Normal Color, Warm/Dry Lymphatic: No Adenopathy Progress/Results/Core Measures Results/Orders Lab Results Laboratory Tests Test 01/10/21 20:25 Range/Units White Blood Count 3.3 L 4.3-11.0 10^3/uL Red Blood Count 5.42 4.30-5.52 10^6/uL Hemoglobin 14.9 13.3-17.7 g/dL Hematocrit 46 40-54 % Mean Corpuscular Volume 84 80-99 fL Mean Corpuscular Hemoglobin 27 25-34 pg Mean Corpuscular Hemoglobin Concent 33 32-36 g/dL Red Cell Distribution Width 13.1 10.0-14.5 % Platelet Count 256 130-400 10^3/uL Mean Platelet Volume 9.5 9.0-12.2 fL Immature Granulocyte % (Auto) 0 % Neutrophils (%) (Auto) 33 L 42-75 % Lymphocytes (%) (Auto) 58 H 12-44 % Monocytes (%) (Auto) 8 0-12 % Eosinophils (%) (Auto) 1 0-10 % Basophils (%) (Auto) 1 0-10 % Neutrophils # (Auto) 1.1 L 1.8-7.8 X 10^3 Lymphocytes # (Auto) 1.9 1.0-4.0 X 10^3 Monocytes # (Auto) 0.3 0.0-1.0 X 10^3 Eosinophils # (Auto) 0.0 0.0-0.3 10^3/uL Basophils # (Auto) 0.0 0.0-0.1 10^3/uL Immature Granulocyte # (Auto) 0.0 0.0-0.1 10^3/uL Sodium Level 140 135-145 MMOL/L Potassium Level 3.8 3.6-5.0 MMOL/L Chloride Level 101 98-107 MMOL/L Carbon Dioxide Level 32 21-32 MMOL/L Anion Gap 7 5-14 MMOL/L Blood Urea Nitrogen 8 7-18 MG/DL Creatinine 0.92 0.60-1.30 MG/DL Estimat Glomerular Filtration Rate 125 BUN/Creatinine Ratio 9 Glucose Level 70 70-105 MG/DL Calcium Level 9.8 8.5-10.1 MG/DL Corrected Calcium 8.5-10.1 MG/DL Magnesium Level 2.1 1.6-2.4 MG/DL Total Bilirubin 0.3 0.1-1.0 MG/DL Aspartate Amino Transf (AST/SGOT) 19 5-34 U/L Alanine Aminotransferase (ALT/SGPT) 11 0-55 U/L Alkaline Phosphatase 89 40-136 U/L Troponin I < 0.30 <0.30 NG/ML Total Protein 7.7 6.4-8.2 GM/DL Albumin 4.6 H 3.2-4.5 GM/DL My Orders Orders - KESHAV NGUYEN MD Cbc With Automated Diff (01/10/21 20:23) Magnesium (01/10/21 20:23) Chest 1 View Ap/Pa Only (01/10/21 20:23) Ekg Tracing (01/10/21 20:23) Comprehensive Metabolic Panel (01/10/21 20:23) Monitor-Rhythm Ecg Trace Only (01/10/21 20:23) Ed Iv/Invasive Line Start (01/10/21 20:23) Troponin I Fs (01/10/21 20:23) Acetaminophen Tablet (Tylenol Tablet) (01/10/21 20:30) Ketorolac Injection (Toradol Injection) (01/10/21 20:30) Medications Given in ED Current Medications Medications Dose Ordered Sig/Uzma Route Start Time Stop Time Status Last Admin Dose Admin Acetaminophen 1,000 mg ONCE ONCE PO 01/10/21 20:30 01/10/21 20:31 DC 01/10/21 20:46 1,000 MG Ketorolac Tromethamine 15 mg ONCE ONCE IV 01/10/21 20:30 01/10/21 20:31 DC 01/10/21 20:48 15 MG Progress Progress Note : Progress Note 20-year-old male with above history coming in due to chest discomfort that feels the same as when he had pericarditis previously. ABCs were intact and vitals were stable on presentation. Physical exam reassuring with no focal abnormalities, and he appears well in no acute distress. EKG sinus rhythm with some ST elevation that is more concerning to me for pericarditis. He does have more convex ST elevations in V3 and V4 which typically would be more concerning, but he has no reciprocal changes, and does have signs of LVH as well which likely is the cause. It is similar to his previous EKG that he had here. An IV was placed and he was given Toradol for pain and basic labs including cardiac markers ordered. Chest x-ray normal and has a normal cardiac silhouette as well. I did a xyuvj-ap-vpal ultrasound and his ejection fraction appears normal and he does not have a pericardial effusion. On reassessment about 20 minutes after the Toradol he is completely pain-free. I will send him home with a prescription for ibuprofen as well as steroids as previously when he tried colchicine he did not tolerate it. I would like him to follow-up with cardiology here. He was then discharged home in stable condition with strict return precautions. Departure Impression Primary Impression: Acute pericarditis Qualified Codes: I30.9 - Acute pericarditis, unspecified Disposition: 01 HOME, SELF-CARE Condition: Stable Departure-Patient Inst. Decision time for Depature: 21:17 Referrals: KAUSHIK CASTANO MD NO,LOCAL PHYSICIAN (PCP) Primary Care Physician Patient Instructions: Pericarditis, Adult (DC) Add. Discharge Instructions: You were seen in the emergency department for chest pain. It does appear like you have the inflammation around your heart called pericarditis again. Take 600 mg of ibuprofen every 8 hours for the next couple weeks. I will give you a medicine to help with your stomach as the ibuprofen can be harsh on your stomach. I will also start you on some steroids. Please follow-up with a brake linings coater Dr. Castano within the next couple weeks. If you develop any fever, shortness of breath, or any other concerns then please come back to the ER. Scripts Famotidine (Pepcid) 20 Mg Tablet 20 MG PO BID for 14 Days, #28 TAB Prov: KESHAV NGUYEN MD 01/10/21 Ibuprofen (Ibuprofen) 600 Mg Tablet 600 MG PO Q8H PRN for PAIN-MILD for 14 Days, #42 TAB Prov: KESHAV NGUYEN MD 01/10/21 Prednisone (Prednisone) 20 Mg Tab 20 MG PO DAILY, #14 TAB 0 Refills Prov: KESHAV NGUYEN MD 01/10/21 KESHAV NGUYEN MD Jan 10, 2021 20:59
[2021-01-10] MEDS ORDERED: PRD20T PO (21:20)
[2021-01-10] MEDS ORDERED: IBUP-1773 PO (21:20)
[2021-01-10] MEDS ORDERED: FAMO-119 PO (21:20)
[2021-01-10 21:40] VITALS: BP 117/60
== END 2021-01-10 21:40 | disposition home or self-care (01) ==
LOC: EDUNIT# 19:52 → ER FS 19:53
DX: I30.9 Acute pericarditis, unspecified (principal); J45.909 Unspecified asthma, uncomplicated
CPT/HCPCS: 36415; 71045; 80053; 83735; 84484; 85025; 93005; 93041